=== PATIENT | male | born 1955 | race Caucasian/White ===

== ENCOUNTER 2019-04-23 06:00 | Outpatient (RCR) | payer MEDICARE, SELFPAY | END 2019-05-23 00:01 | LOC: TPO 06:00 | PROVIDERS: Family Provider Nurse Practitioner Family; Visit Provider Nurse Practitioner Family | DX: I63.9 Cerebral infarction, unspecified (principal) | CPT/HCPCS: 97110 ×2; 97530 ×2; 97535 ==

== ENCOUNTER 2019-05-24 06:00 | Outpatient (RCR) | payer MEDICARE, BC, SELFPAY | END 2019-06-23 23:59 | disposition home or self-care (01) | LOC: TPO 06:00 | PROVIDERS: Family Provider Nurse Practitioner Family; PCP Nurse Practitioner Family; Visit Provider Nurse Practitioner Family | DX: Z86.73 Personal history of transient ischemic attack (TIA), and cerebral infarction without residual deficits (principal) | CPT/HCPCS: 97110; 97116; 97164; 97530; 97535 ==

== ENCOUNTER → 2019-06-02 15:40 | Outpatient (BNVA) | payer MEDICARE, BC, SELFPAY | PROVIDERS: Family Provider Nurse Practitioner Family; PCP Nurse Practitioner Family; Visit Provider Nurse Practitioner Family | DX: N39.0 Urinary tract infection, site not specified (principal); Z12.5 Encounter for screening for malignant neoplasm of prostate; R31.9 Hematuria, unspecified | CPT/HCPCS: 81003; 84153 ==

== ENCOUNTER 2019-06-24 06:00 | Outpatient (RCR) | payer MEDICARE, BC, SELFPAY | END 2019-07-12 23:00 | disposition home or self-care (01) | LOC: TPO 06:00 | PROVIDERS: PCP Nurse Practitioner Family; Visit Provider Nurse Practitioner Family | DX: I63.9 Cerebral infarction, unspecified (principal) | CPT/HCPCS: 97110; 97168; 97530; 97535 ==

== ENCOUNTER → 2019-10-19 11:47 | Outpatient (BNVA) | payer MEDICARE, BC, SELFPAY | PROVIDERS: Visit Provider Family Medicine | DX: R53.83 Other fatigue (principal); E78.5 Hyperlipidemia, unspecified; I10 Essential (primary) hypertension; K21.0 Gastro-esophageal reflux disease with esophagitis; J44.9 Chronic obstructive pulmonary disease, unspecified; R63.4 Abnormal weight loss | CPT/HCPCS: 80053; 80061; 82607; 84443 ==

== ENCOUNTER → 2020-03-15 16:00 | Outpatient (BNVA) | payer MEDICARE, BC, SELFPAY | DX: E78.2 Mixed hyperlipidemia (principal); I10 Essential (primary) hypertension; J44.9 Chronic obstructive pulmonary disease, unspecified; K21.00 Gastro-esophageal reflux disease with esophagitis, without bleeding | CPT/HCPCS: 80053; 80061; 85025 ==

== ENCOUNTER 2020-04-09 18:47 | Emergency (ER) | payer MEDICARE, BC, SELFPAY ==
[2020-04-09 18:55] VITALS: BP 165/86; RESP 16; TEMP 36.7; O2SAT 99; BMI 18.6
[2020-04-09 19:47] VITALS: PULSE 78
--- NOTE | 2020-04-09 20:27 | XR_ITS ---
WS: [id number] RIGHT HAND: 3 VIEW(S) TECHNIQUE: PA, oblique and lateral. HISTORY: puncture wound with fence COMPARISON: 04/07/2020 No acute fracture or dislocation. Chronic deformity distal phalanx of the fifth finger. No acute frac ture. No soft tissue or bone abnormality. No foreign body. XR/XR hand RT min 3V* [id number] IMPRESSION: No foreign body or acute fracture.
[2020-04-09 20:29] LABS: Basophils % 0.4 %; Eosinophils # 0.2 10^3/uL (0.0-0.8); Hematocrit 43.5 % (42.0-52.0); Hemoglobin 14.1 g/dL (11.7-16.6); Lymphocytes # 2.6 10^3/uL (0.8-4.8); Lymphocytes % 22.7 %; Mean Corpuscular HGB Conc 32.4 g/dL (30.0-36.0); Mean Corpuscular Volume 92.6 fL (80-94); Mean Platelet Volume 11.1 fL (7.4-10.4); Monocytes # 0.9 10^3/uL (0.2-0.9); Neutrophils # 7.51 10^3/uL (1.8-7.7); Neutrophils % 66.7 %; Nucleated Red Blood Cells % 0 %; Platelet Count 240 10^3/cmm (130-400); Red Cell Distribution Width 12.9 % (12.1-15.1); White Blood Count 11.3 10^3/uL (4.0-10.0)
--- NOTE | 2020-04-09 20:33 | ED_ITS ---
HPI - Extremity Problem General: Chief complaint: Extremity Injury, Upper Stated complaint: lac rt hand Time Seen by Provider: 04/09/20 19:20 Source: patient Mode of arrival: ambulatory Limitations: no limitations History of Present Illness: HPI Narrative: 65-year-old male patient presents to the emergency department with puncture wound to the right palm. Reports large amount of bleeding, remains on Plavix and aspirin secondary to stent placement and history of CVA. He reports bleeding was difficult to control, tetanus shot greater than 10 years. He reports reached around to shut a gate when he grabbed the keila wire fence sustaining a puncture wound. Complaint: other (bleeding) Onset (ago): minute(s) (45) Location: right and upper extremity Quality: other (denies pain - pressure dressing applied) Associated symptoms: Deny chest pain, fever(s) or rash Review of Systems General: Reports: 10 or more systems reviewed and unremarkable except in HPI and below Const: Denies: fever(s), chills or diaphoresis Eyes: Denies: blurry vision or eye redness ENMT: Denies: throat pain, dental pain or disequilibrium Card: Denies: chest pain, palpitations or irregular heart rhythm Resp: Denies: dyspnea, productive cough, non-productive cough or wheezing GI: Denies: abdominal pain, nausea or vomiting : Denies: dysuria Musc: Denies: back pain Skin/Breast: Reports: changes in skin color and other (bleeding); Denies: rash or pruritus Neuro: Denies: headache(s), weakness in extremities or behavioral changes Psych: Denies: anxiety or depression Alex/Lymph: Denies: easy bruising PFS ED PFSH: Medical History (Updated 04/09/20 @ 21:27 by Alyssa Mcfarland [facility]) COPD (chronic obstructive pulmonary disease) CVA (cerebral vascular accident) GERD (gastroesophageal reflux disease) History of diverticulitis Surgical History H/O wrist surgery History of carpal tunnel surgery of left wrist History of cholecystectomy Hx of colonoscopy Social History Smoking and tobacco status: current every day smoker Alcohol intake: never Marital status: Current occupational status: retired Current gender identity: Male Physical Exam Const: COMMON NORMALS: no acute distress, patient oriented x3, healthy appearing and alert GENERAL APPEARANCE: cooperative, comfortable and well hydrated HENMT: COMMON NORMALS: normocephalic, Normal external nose present and moist oral mucous membranes HEAD & SCALP: normocephalic NOSE: Normal external nose present Eye: COMMON NORMALS: Equal, round and reactive pupils present and EOMs intact bilaterally GENERAL EYE: appearance normal, both eyes and all related structures PUPIL: Yes Equal, round and reactive pupils present Neck/C-Spine: COMMON NORMALS: full ROM and no lymphadenopathy GENERAL: Yes normal visual inspection and Yes trachea midline CERVICAL SPINE: Yes cervical ROM normal Lymph: LYMPHATIC: no lymphadenopathy noted Chest: COMMONS NORMALS: normal inspection of the chest Resp: COMMON NORMALS: normal respiratory effort and clear to auscultation bilaterally AUSCULTATION: clear to auscultation bilaterally Cardio: COMMON NORMALS: regular rhythm, S1 normal heart sound present and S2 normal heart sound present RHYTHM: regular rhythm HEART SOUNDS: S1 normal heart sound present and S2 normal heart sound present GI: COMMON NORMALS: Soft to palpation and non-tender INSPECTION: Yes normal to inspection PALPATION: Yes Soft to palpation : COMMON NORMALS: Yes no CVA tenderness BLADDER/KIDNEY EXAM: Yes no CVA tenderness Back/Pelvis: COMMON NORMALS: no CVA tenderness and thoracic and lumbar spine normal to inspection Extremity: COMMON NORMALS: normal to inspection and capillary refill normal Neuro: COMMON NORMALS: patient oriented x3 and no focal motor deficits SENSORIUM/ORIENTATION: Yes alert Psych: COMMON NORMALS: mental status grossly normal, Normal thought process present and cooperative ACTIVITY/MOTOR BEHAVIOR: Yes appropriate eye contact THOUGHT PROCESS: Normal thought process present Skin: COMMON NORMALS: turgor normal GENERAL SKIN EXAM: turgor normal TRAUMA: puncture (right thenar thumb, active pulsation bleeding) WOUNDS: Yes wounds noted Course ED course: 65-year-old male patient presents to the emergency department with arterial bleed of the right thenar surface of the hand/thumb. Bleeding was controlled with direct pressure to the radial artery and to the puncture site. Pressure dressing applied after hemostasis. Patient was monitored in the emergency department for quite some time, no return of bleeding, wound was cleansed, additional pressure dressing was applied after cleansing. Patient was placed on Augmentin for prophylactic antibiotics due to arterial puncture with barbed wire. Tetanus prophylaxis administered here in the ED. Advised to return to the emergency department if he developed return of bleeding. Spouse was counseled how to control bleeding if occurs. Vital Signs: Vital signs: Vital Signs Temperature 98.1 F 04/09/20 18:55 Pulse Rate 55 L 04/09/20 22:05 Respiratory Rate 18 04/09/20 22:05 Blood Pressure 150/80 04/09/20 22:05 Pulse Oximetry 94 04/09/20 22:05 MDM - Extremity (Nontraumatic) Lab Data: Labs: Lab Results 04/09/20 04/09/20 04/09/20 Range/Units 20:20 20:20 20:20 WBC 11.3 H (4.0-10.0) 10^3/ uL RBC 4.70 (4.1-5.3) 10^6/u L Hgb 14.1 (11.7-16.6) g/dL Hct 43.5 (42.0-52.0) % MCV 92.6 (80-94) fL MCH 30.0 (28.0-34.0) pg MCHC 32.4 (30.0-36.0) g/dL RDW 12.9 (12.1-15.1) % Plt Count 240 (130-400) 10^3/c mm MPV 11.1 H (7.4-10.4) fL Neut % (Auto) 66.7 % Lymph % (Auto) 22.7 % [place] % (Auto) 8.0 % Eos % (Auto) 2.0 % Baso % (Auto) 0.4 % Neut # (Auto) 7.51 (1.8-7.7) 10^3/u L Lymph # (Auto) 2.6 (0.8-4.8) 10^3/u L [place] # (Auto) 0.9 (0.2-0.9) 10^3/u L Eos # (Auto) 0.2 (0.0-0.8) 10^3/u L Baso # (Auto) 0.0 (0.0-0.1) 10^3/u L Nucleated RBC % (a uto) 0 % Nucleated RBCs # 0.0 /100WBC PT 13.70 (12.1-14.9) SECO NDS INR 1.02 (0.8-1.2) APTT 33.9 (23.9-36.7) SECO NDS Sodium 139 (136-145) mmol/L Potassium 3.3 L (3.5-5.1) mmol/L Chloride 103 (98-107) mmol/L Carbon Dioxide 28 (22-29) mmol/L Anion Gap 11.3 (5-19) BUN 11 (8-23) mg/dL Creatinine 0.8 (0.7-1.2) mg/dL GFR Calculation 96.7 (90-130) mL/min Glucose 93 (65-115) mg/dL Calculated Osmolal ity 287 (285-295) mOsm/k g Calcium 9.0 (8.5-10.5) mg/dL Total Bilirubin 0.5 (0.15-1.2) mg/dL AST 22 (0-40) U/L ALT 21 (0-41) U/L Alkaline Phosphata se 93 (40-130) IU/L Total Protein 6.5 L (6.6-8.7) g/dL Albumin 4.2 (3.5-5.2) g/dL Globulin 2.3 (1.3-4.6) g/dL Imaging Data^: Other Xray: My impression: negative FB to the rt hand, no acute fracture present, radiology inturp pending Discharge Plan Discharge Patient Disposition: Home Clinical Impression: Arterial hemorrhage Puncture wound of hand Qualifiers: Encounter type: initial encounter Foreign body presence: without foreign body Laterality: right Qualified Code(s): S61.431A - Puncture wound without foreign body of right hand, initial encounter Condition: Stable Prescriptions: New Augmentin 875-125 mg tablet 1 tab PO Q12H Qty: 14 RF: 0 Held aspirin [Adult Low Dose Aspirin] 81 mg tablet,delayed release (DR/EC) 81 mg PO ONCE RF: 0 Hold Instructions: Resume on 04/11/20. clopidogrel 75 mg tablet See Rx Instructions .ROUTE .COMPLEX Qty: 30 RF: 3 Hold Instructions: Resume on 04/11/20. No Action albuterol sulfate [ProAir HFA] 90 mcg/actuation HFA aerosol inhaler 2 puff INHALATION QID RF: 0 atorvastatin 40 mg tablet 40 mg PO DAILY Qty: 90 RF: 3 pantoprazole 40 mg tablet,delayed release (DR/EC) 40 mg PO DAILY Qty: 90 RF: 3 Chantix Starting Month Box 0.5 mg (11)- 1 mg (42) tablets,dose pack See Rx Instructions PO PER PKG DIR Qty: 53 RF: 0 Discharge Orders: Discharge Order (Routine); Ordered 04/09/20 Ordered By: Alyssa Mcfarland Discharge Diet: Usual diet Discharge Activity: Limit activity as instructed Patient Instructions: Puncture Wound (ED) Activity Restrictions/Additional Instructions: limited use of the right hand x 24 hours return to the ED if bleeding from the site occurs If bleeding occurs, Hold pressure to the artery and to the puncture site Take Augmentin until all gone Hold Plavix and aspirin tomorrow, resume on Leave pressure dressing on x 24 hours, may loosen if becomes too tight. May wash hands with soap and water then pat dry Coding Level of Care Code ED Specialty Food Products Supervisor for Lonnie Fwd Exam Comprehensive
[2020-04-09 20:39] LABS: INR 1.02 (0.8-1.2)
[2020-04-09] MEDS: tetanus-dipt-pertussis 0.5 mL SDV IM (20:39)
[2020-04-09 20:40] LABS: Partial Thromboplastin Time 33.9 SECONDS (23.9-36.7)
[2020-04-09 20:46] LABS: Alanine Aminotransferase 21 U/L (0-41); Albumin Level 4.2 g/dL (3.5-5.2); Alkaline Phosphatase 93 IU/L (40-130); Anion Gap 11.3 (5-19); Aspartate Amino Transferase 22 U/L (0-40); Blood Urea Nitrogen 11 mg/dL (8-23); Carbon Dioxide 28 mmol/L (22-29); Chloride 103 mmol/L (98-107); Globulin 2.3 g/dL (1.3-4.6); Glomerular Filtration Rate 96.7 mL/min (90-130); Glucose 93 mg/dL (65-115); Osmolality Calculated 287 mOsm/kg (285-295); Potassium 3.3 mmol/L (3.5-5.1); Sodium 139 mmol/L (136-145); Total Bilirubin 0.5 mg/dL (0.15-1.2); Total Protein 6.5 g/dL (6.6-8.7)
[2020-04-09 22:05] VITALS: BP 150/80; PULSE 55; RESP 18; O2SAT 94
== END 2020-04-09 22:07 | disposition home or self-care (01) ==
PROVIDERS: Emergency Provider Nurse Practitioner Family
DX: S61.431A Puncture wound without foreign body of right hand, initial encounter (principal); R58 Hemorrhage, not elsewhere classified; Z79.82 Long term (current) use of aspirin; Z79.02 Long term (current) use of antithrombotics/antiplatelets; J44.9 Chronic obstructive pulmonary disease, unspecified; Z86.73 Personal history of transient ischemic attack (TIA), and cerebral infarction without residual deficits; F17.210 Nicotine dependence, cigarettes, uncomplicated; W26.8XXA Contact with other sharp object(s), not elsewhere classified, initial encounter; Z23 Encounter for immunization
CPT/HCPCS: 12345; 73130; 80053; 85025; 85610; 85730; 90471; 90715; 99283

== ENCOUNTER → 2020-08-28 15:56 | Outpatient (BNVA) | payer MEDICARE, BC, SELFPAY | PROVIDERS: Visit Provider Nurse Practitioner Family | DX: R63.4 Abnormal weight loss (principal); R53.83 Other fatigue; Z12.11 Encounter for screening for malignant neoplasm of colon; Z68.1 Body mass index [BMI] 19.9 or less, adult; F17.210 Nicotine dependence, cigarettes, uncomplicated; Z71.89 Other specified counseling | CPT/HCPCS: 80053; 82306; 82607; 84443; 85025 ==

== ENCOUNTER 2020-09-04 12:51 | Outpatient (CLI) | payer MEDICARE, BC, SELFPAY ==
[2020-09-04] MEDS: iohexol 300 mg/mL 50 mL Btl PO (13:22)
--- NOTE | 2020-09-04 13:30 | CT_ITS ---
WS: [id number] CT CHEST, ABDOMEN, AND PELVIS TECHNIQUE: Contrast-enhanced CT of the chest, abdomen, and pelvis with coronal and sagittal reformatt ed images. CLINICAL INFORMATION: R53.83 - Other fatigue COMPARISON: CT abdomen pelvis 7 14,016 DLP: 1383.[address] scans at [facility] use at least one of these dose optimization techniques: automat ed exposure control; mA and/or kV adjustment per patient size (includes targeted exams where dose is matched to clinical indication); or iterative reconstruction. CT CHEST: Mild chronic emphysematous changes. No acute pulmonary infiltrates. No focal consolidation or pleural fluid. Fibrosis in the lung apices. Slight basilar atelectasis. No focal pneumonia or pleural fluid. No mediastinal or hilar lymphadenopathy. Slightly aneurysmal aortic arch measuring 3.6 x 3.4 cm AP by transverse. 3.5 cm noncalcified nodule right upper lobe. Additional subpleural nodules in the inferi or segment right upper lobe and right middle lobe measuring 3 to 4 mm. 2 or 3 additional noncalcified 3 to 4 mm nodules in the left upper lobe and left lower lobe. CT ABDOMEN AND PELVIS: Diffuse fatty infiltration of the liver. Cholecystectomy clips. Portal vein and splenic vein are vasques nt. Normal spleen. Normal adrenal glands. Normal renal parenchymal enhancement. Normal pancreas. Aort ic calcification. Normal GE junction. No abdominal or pelvic lymphadenopathy. Mild sigmoid constipation. No evidence of high-grade small or large bowel obstruction. Mild hypertrophic changes thoracic spine. CT/CT chest abd pel w con* IMPRESSION: 1. Mild chronic emphysematous changes. No acute pulmonary infiltrates. 2. Several noncalcified subcentimeter pulmonary nodules in both lungs. Recomme nd 12 month follow-up. 3. Fibrosis both lung apices. 4. No mediastinal or hilar lymphadenopathy. 5. Slightly aneurysmal distal aortic arch measuring 3.6 x 3.4 CM. 6. Diffuse fatty infiltration liver. Prior cholecystectomy. 7. Normal caliber abdominal aorta. 8. No abdominal or pelvic lymphadenopathy. 9. No other significant findings.
[2020-09-04] MEDS: iodixanol 320 mg/mL 100mL Btl IV (13:45)
== END 2020-09-04 12:52 | disposition home or self-care (01) ==
LOC: RADWPI 12:55
PROVIDERS: PCP Family Medicine; Visit Provider Nurse Practitioner Family
DX: R53.83 Other fatigue (principal); R63.4 Abnormal weight loss; J84.10 Pulmonary fibrosis, unspecified; R91.8 Other nonspecific abnormal finding of lung field
CPT/HCPCS: 71260; 74177; Q9967

== ENCOUNTER → 2021-01-17 10:30 | Outpatient (BNVA) | payer MEDICARE, BC, SELFPAY | PROVIDERS: PCP Family Medicine; Visit Provider Nurse Practitioner Family | DX: E78.2 Mixed hyperlipidemia (principal); I10 Essential (primary) hypertension; R53.83 Other fatigue; J44.9 Chronic obstructive pulmonary disease, unspecified; I63.89 Other cerebral infarction; Z79.899 Other long term (current) drug therapy | CPT/HCPCS: 80053; 80061; 82306; 82607; 84443; 85025 ==

== ENCOUNTER → 2021-07-21 08:37 | Outpatient (BNVA) | payer MEDICARE, BC, SELFPAY | PROVIDERS: PCP Family Medicine; Visit Provider Family Medicine | DX: E78.5 Hyperlipidemia, unspecified (principal); I10 Essential (primary) hypertension; E55.9 Vitamin D deficiency, unspecified; R53.83 Other fatigue | CPT/HCPCS: 80053; 80061; 82306; 82607; 84403; 84443; 85025 ==

== ENCOUNTER → 2022-01-07 08:38 | Outpatient (BNVA) | payer MEDICARE, BC, SELFPAY | PROVIDERS: PCP Family Medicine; Visit Provider Nurse Practitioner Family | DX: E78.5 Hyperlipidemia, unspecified (principal); E78.2 Mixed hyperlipidemia; I10 Essential (primary) hypertension; R79.89 Other specified abnormal findings of blood chemistry; R53.83 Other fatigue | CPT/HCPCS: 80053; 80061; 82607; 84403; 84443; 85025 ==

== ENCOUNTER → 2022-08-03 10:32 | Outpatient (BNVA) | payer MEDICARE, BC, SELFPAY | PROVIDERS: PCP Family Medicine; Visit Provider Nurse Practitioner Family | DX: E78.5 Hyperlipidemia, unspecified (principal); R53.83 Other fatigue; I10 Essential (primary) hypertension; R79.89 Other specified abnormal findings of blood chemistry | CPT/HCPCS: 80053; 80061; 84443; 85025 ==

== ENCOUNTER 2022-08-25 16:39 | Outpatient (CLI) | payer MEDICARE, BC, SELFPAY ==
--- NOTE | 2022-08-25 17:00 | CT_ITS ---
WS: [id number] CT chest wo con [id number] HISTORY: R91.8 - Other nonspecific abnormal finding of lung field TECHNIQUE: Axial imaging performed through the thorax. Coronal and sagittal reformats are submitted. All CT scans at [facility] use at least one of these dose optimization techniques: automated exposure control; mA and/or kV adjustment per patient size (includes targeted exams where dose is mat ched to clinical indication); or iterative reconstruction. CONTRAST: None DLP: 176.20 mGy.cm COMPARISON: 09/04/2020 Lungs and central airway: Centrilobular emphysema. Moderate biapical pleural thickening and scarring with fibrosis. Very similar to the prior study. Greater fibrosis with calcification at the RIGHT apex . Previously described upper lobe pulmonary nodules are reidentified. Very minimal change in size. Th ere is no significant enlarging mass or nodule. No new mass or nodule. Pleura: Normal. No pleural effusion. Heart and pericardium: Normal size heart with no pericardial effusion. Mediastinum and nusrat: No mediastinum or hilar adenopathy. Vessels: Mild ectasia and atherosclerosis aorta. Dilatation to the aortic arch measures 3.4 cm. Very similar to the prior study. Normal size pulmonary artery. Chest wall and lower neck: Cardiac loop recorder over the LEFT chest wall. Upper abdomen: Prior cholecystectomy. Suprarenal aortic calcification. Osseous structures: No destructive process. CT/CT chest wo con [id number] IMPRESSION: 1. Stable bilateral pulmonary nodules. Nodules are subcentimeter with no incre ase in size or change since 09/04/2020. 2. Chronic emphysema with biapical pulmonary fibrosis. 3. Mild ectasia and dilatation thoracic aorta with no interval change. 4. Prior cholecystectomy.
== END 2022-08-25 16:40 | disposition home or self-care (01) ==
PROVIDERS: PCP Family Medicine; Visit Provider Nurse Practitioner Family
DX: R91.8 Other nonspecific abnormal finding of lung field (principal); J43.9 Emphysema, unspecified; J84.10 Pulmonary fibrosis, unspecified; Z90.49 Acquired absence of other specified parts of digestive tract
CPT/HCPCS: 71250

== ENCOUNTER → 2023-03-12 13:00 | Outpatient (BNVA) | payer MEDICARE, BC, SELFPAY | PROVIDERS: PCP Family Medicine; Visit Provider Nurse Practitioner Family | DX: E78.2 Mixed hyperlipidemia (principal); I63.89 Other cerebral infarction; J44.9 Chronic obstructive pulmonary disease, unspecified; I10 Essential (primary) hypertension; Z12.5 Encounter for screening for malignant neoplasm of prostate | CPT/HCPCS: 80053; 80061; 84443; 85025; G0103 ==

== ENCOUNTER → 2023-09-17 11:26 | Outpatient (BNVA) | payer MEDICARE, BC, SELFPAY | PROVIDERS: PCP Family Medicine; Visit Provider Nurse Practitioner Family | DX: J44.9 Chronic obstructive pulmonary disease, unspecified (principal); I10 Essential (primary) hypertension; E78.2 Mixed hyperlipidemia; F17.210 Nicotine dependence, cigarettes, uncomplicated; Z78.9 Other specified health status | CPT/HCPCS: 80053; 80061; 84443; 85025 ==

== ENCOUNTER 2023-10-07 11:09 | Outpatient (CLI) | payer MEDICARE, BC, SELFPAY ==
--- NOTE | 2023-10-07 11:00 | CT_ITS ---
WS: [id number] LDCT LUNG CANCER SCREENING TECHNIQUE: Noncontrast CT of the chest with coronal and sagittal reformatted images. CLINICAL INFORMATION: F17.210 - Nicotine dependence, cigarettes, uncomplicated COMPARISON: CT chest 08/25/2022 DLP: 49.99 mGy.cm DIvol: Mean CTDIvol: 0.70 (mGy) All CT scans at [facility] use at least one of these dose optimization techniques: automat ed exposure control; mA and/or kV adjustment per patient size (includes targeted exams where dose is matched to clinical indication); or iterative reconstruction. FINDINGS: Chronic emphysematous changes with stable biapical fibrosis. Calcification of the RIGHT lung apex. Ag ain seen are multiple bilateral subcentimeter pulmonary nodules unchanged compared to previous larges t measuring 3 to 4 mm. No new suspicious pulmonary parenchymal abnormalities. A few calcified granulo mas. Ectatic aortic arch and proximal descending thoracic aorta measuring 3.5 cm. Mild aortic calcificatio n. Coronary calcification. No mediastinal or hilar lymphadenopathy. No axillary lymphadenopathy. Prior cholecystectomy. Normal GE junction. Adrenal glands are normal. Mild thoracic curve. Mild thora cic kyphosis. CT/CT lung screening [id number] IMPRESSION: LUNG-RADS: 2-Benign Appearance or Behavior FOLLOW UP: 12 Month: Continue annual screening with LDCT
== END 2023-10-07 11:10 | disposition home or self-care (01) ==
LOC: RAD 11:10
PROVIDERS: PCP Nurse Practitioner Family; Visit Provider Nurse Practitioner Family
DX: F17.210 Nicotine dependence, cigarettes, uncomplicated (principal); Z12.2 Encounter for screening for malignant neoplasm of respiratory organs
CPT/HCPCS: 71271

== ENCOUNTER → 2024-04-27 09:33 | Outpatient (BNVA) | payer MEDICARE, BC, SELFPAY | PROVIDERS: PCP Nurse Practitioner Family; Visit Provider Nurse Practitioner Family | DX: I10 Essential (primary) hypertension (principal); E78.2 Mixed hyperlipidemia; Z12.5 Encounter for screening for malignant neoplasm of prostate; J44.9 Chronic obstructive pulmonary disease, unspecified; K52.9 Noninfective gastroenteritis and colitis, unspecified | CPT/HCPCS: 80053; 80061; 84443; 85025; G0103 ==

== ENCOUNTER → 2024-10-04 13:34 | Outpatient (BNVA) | payer MEDICARE, BC, SELFPAY | PROVIDERS: PCP Nurse Practitioner Family; Visit Provider Nurse Practitioner Family | DX: I10 Essential (primary) hypertension (principal) | CPT/HCPCS: 80053; 80061; 84443; 85025 ==

== ENCOUNTER 2024-10-13 10:08 | Outpatient (CLI) | payer MEDICARE, BC, SELFPAY ==
--- NOTE | 2024-10-13 10:00 | CT_ITS ---
WS: [id number] LDCT LUNG CANCER SCREENING TECHNIQUE: Noncontrast CT of the chest with coronal and sagittal reformatted images. CLINICAL INFORMATION: F17.210 - Nicotine dependence, cigarettes, uncomplicated COMPARISON: 2023 DLP: 42.62 mGy.cm DIvol: Mean CTDIvol: 0.70 (mGy) All CT scans at [facility] use at least one of these dose optimization techniques: automated exposure control; mA and/or kV adjustment per patient size (includes targeted exams where dose is matched to clinical indication); or iterative reconstruction. FINDINGS: Chronic emphysematous changes. Fibrosis in the lung apices. Stable multiple bilateral subcentimeter pulmonary nodules similar to previous. No new suspicious pulmonary parenchymal abnormalities. A few calcified granulomas. Largest nodules measure 3 to 4 mm. Aortic and coronary calcification. Stable ectatic aortic arch and proximal descending thoracic aorta measuring 3.5 cm. Prior cholecystectomy. No mediastinal or hilar lymphadenopathy. No axillary lymphadenopathy. Prior cholecystectomy. Normal GE junction. Adrenal glands are normal. Thoracic kyphosis CT/CT lung screening [id number] IMPRESSION: LUNG-RADS: 2-Benign Appearance or Behavior FOLLOW UP: 12 Month: Continue annual screening with LDCT
== END 2024-10-13 10:09 | disposition home or self-care (01) ==
LOC: RAD 10:11
PROVIDERS: PCP Nurse Practitioner Family; Visit Provider Nurse Practitioner Family
DX: Z12.2 Encounter for screening for malignant neoplasm of respiratory organs (principal); F17.210 Nicotine dependence, cigarettes, uncomplicated; J43.8 Other emphysema; J84.10 Pulmonary fibrosis, unspecified; R91.8 Other nonspecific abnormal finding of lung field; I70.0 Atherosclerosis of aorta; I25.10 Atherosclerotic heart disease of native coronary artery without angina pectoris; I77.810 Thoracic aortic ectasia; Z90.49 Acquired absence of other specified parts of digestive tract; M40.294 Other kyphosis, thoracic region
CPT/HCPCS: 71271

== ENCOUNTER 2025-03-26 15:55 | Emergency (ER) | payer MEDICARE, BC, SELFPAY ==
[2025-03-26 15:59] VITALS: BP 158/83; PULSE 56; TEMP 36.6; O2SAT 98
--- OUTSIDE RECORDS SUMMARY | 2025-03-26 16:03 | XMS_ITS | Encounter Summary ---
Author Organization [facility] Address [address] [place] [address] Care Team Providers Care Bulb Inspector Name Role Phone Mary Colon MD Primary Care Provider [phone] Reason for Visit * Reason Onset Date Comments Question 10/13/2023 Procedure schedu ling Encounter Details Date Type Department Care Team (Late st Contact Info) Description 10/13/2023 Telephone [facility] [address] [place] [address] Aparna Subramanian, SAKINA NO ADDRESS ON FILE Question (Procedure scheduling) Social History Tobacco Use Types Packs/Day Years Used Date Smoking Tobacco: Every Day Cigarettes Smokeless Tobacco: Never Comments:Quit smokin pac k/day 6.17.20. currently smokes 0.5 ppd 12.11.19 Alcohol Use Standard Drinks/Week Comments Not Currently 0 (1 standard drink = 0.6 oz pur e alcohol) Feeling Safe Answer Date Recorded Within the last year, have y ou been afraid of your partner or ex-partner? No 02/22/2019 Within the last year, have y ou been humiliated or emotionally abused in other ways by your partner or ex-partner? No Within the last year, have y ou been kicked, hit, slapped, or otherwise physically hurt by your partner or ex-partner? No 02/22/2019 Within the last year, have y ou been raped or forced to have any kind of sexual activity by your partner or ex-partner? No 02/22/2019 Social Connections Answer Date Recorded In a typical week, how many times do you talk on the phone with family, friends, or neighbors? Once a week 02/22/2019 How often do you get togethe r with friends or relatives? Never 02/22/2019 How often do you attend chur ch or zoroastrianism services? More than 4 times per year 02/22/2019 Do you belong to any clubs o r organizations such as evangelical groups, unions, fraternal or athletic groups, or school groups? No 02/22/2019 How often do you attend meet ings of the clubs or organizations you belong to? Never 02/22/2019 Are you , , di vorced, , never , or living with a partner? 02/22/2019 Financial Resource Strain Answer Date R ecorded How hard is it for you to pa y for the very basics like food, housing, medical care, and heating? Hard 02/22/2019 Food Insecurity Answer Date Recorded Within the past 12 months, y ou worried that your food would run out before you got the money to buy more. Never true 02/23/20 19 Within the past 12 months, t he food you bought just didn't last and you didn't have money to get more. Never true 02/22/2019 Transportation Needs Answer Date Record ed In the past 12 months, has l ack of transportation kept you from medical appointments or from getting medications? Yes 06/2018 In the past 12 months, has l ack of transportation kept you from meetings, work, or from getting things needed for daily living? 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 He is still expecting a call. [facility] Cigarette Making Machine Operator: TRAVIS Collins documented in this encounter Plan of Treatment Upcoming Encounters Date Type Department Care Team (Late st Contact Info) Description 05/07/2025 1:40 PM TECHNICAL MANAGER [employer]ANT Office Visit [facility] Neurosurgery [address] [place] [address] Marc Florence MD [address] [place] [address] 09/19/2025 11:00 AM CDT Office Visit [facility] [address] [place] [address] Amber Kinney MD [address] [place] [address] Joana Lopez PA-C [address] [place] [address] documented as of this encounter Visit Diagnoses Not on filedocumented in this encounter Care Teams Bulb Inspector Relationship Specialty Start Date End Date Mary Colon MD [address] [place] [address] PCP - General Family Practice 03/15/20 documented as of this encounter
--- OUTSIDE RECORDS SUMMARY | 2025-03-26 16:03 | XMS_ITS | Encounter Summary ---
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 Gender Identity Not on file Sexual Orientation Not on file documented as of this encounter Plan of Treatment Upcoming Encounters Date Type Department Care Team (Late st Contact Info) Description 05/07/2025 1:40 PM WAD BLANKING PRESS ADJUSTER Office Visit [facility] Neurosurgery [address] [place] [address] Marc Florence MD [address] [place] [address] 09/19/2025 11:00 AM CDT Office Visit [facility] Cardiology [facility] [address] [place] [address] Amber Kinney MD [address] [place] [address] Joana Lopez PA-C [address] [place] [address] documented as of this encounter Visit Diagnoses Not on filedocumented in this encounter Care Teams Yarn Inspector Relationship Specialty Start Date End Date Mary Colon MD [address] [id number] PCP - General Family Practice 03/15/20 documented as of this encounter
--- OUTSIDE RECORDS SUMMARY | 2025-03-26 16:03 | XMS_ITS | Clinical Summary ---
Author Organization [facility] Chan argueta [place] Address [address] [place] [address] Phone Care Team Providers Care Elevator Serviceman Name Role Phone Mary Colon MD Primary Care Provider [phone] Allergies Active Allergy Reactions Criticality Noted Date Comments Tetracycline Unknown 12/08/2010 Medications acetaminophen (TYLENOL) 325 mg tablet Take 2 Tablets (650 mg) by mouth every 4 hours as needed for Temperature (temp >101). 9 Active aspirin (ECOTRIN EC) 81 mg Tablet, Delayed Release (E.C.) Take 1 Tablet (81 mg) by mouth daily. 9 Active Additional Information Patient taking differently:81 mg OralDAILY WITH BREAKFAST, Reported on 03/16/2019 pantoprazole (PROTONIX) 40 mg Tablet, Delayed Release (E.C.) Take 40 mg by mouth daily. 0 9 Active clopidogrel (PLAVIX) 75 mg Tablet Take 1 Tablet (75 mg) by mouth daily. 30 Tablet 2 9 Active atorvastatin (LIPITOR) 80 mg tablet Take 1 Tablet (80 mg) by mouth daily. 30 Tablet 11 0 Active nitroglycerin (NITROSTAT) 0.4 mg Tablet, Sublingual Place 1 Tablet (0.4 mg) under tongue every 5 minutes as needed for Chest Pain (Not to exceed 3 doses, notify physician if chest pain not relieved, hold if systolic BP less than or equal to 90 mmHg). 25 Tablet 2 0 Active Cholecalciferol , Vitamin D3, 50 mcg (2,000 unit) Capsule Take by mouth. A ctive Active Problems Problem Noted Date Diagnosed Date Implantable loop recorder - Medtronic 11/05/2020 Coronary artery disease invo lving [place] coronary artery of [place] heart without angina pectoris 03/22/2020 Abnormal computed tomography angiography of hear t 03/15/2020 Overview (03/15/2020): Added automatically from request for surgery [id number] PFO (patent foramen ovale) 07/10/2019 Carotid stenosis, asymptomatic, left 04/15/2019 History of CVA (cerebrovascular accident) 2018 Non-traumatic intracranial hemorrhage 02/23/2019 Overview (02/23/2019): Mild hemorrhagic conversion of RMCA ischemia Sinus bradycardia 02/20/2019 Cigarette nicotine dependence without complicati on Resolved Problems Problem Noted Date Diagnosed Date Resolved Date Tobacco abuse 07/10/2019 03/22/2020 ICAO (internal carotid arter y occlusion), right 02/21/2019 02/21/2019 Acute right MCA stroke 02/20/201903/22 Hypovolemic shock 02/20/2019 03/22/2020 Cardiogenic shock 03/22/2020 Immunizations Immunization Administration Dates Next Due Influenza Seasonal Unspecified Formulation IM Social History Tobacco Use Types Packs/Day Years Used Date Smoking Tobacco: Every Day Cigarettes 0.5 50 Smokeless Tobacco: Never Chew Comments:1 pack/day 6.17.20. currently smokes 0.5 ppd 12.11.19 Alcohol [...] often do you attend chur ch or shinto services? 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 Gender Identity Not on file Sexual Orientation Not on file Last Filed Vital Signs Vital Sign Reading Time Taken Comments Blood Pressure 128/78 11/13/2020 11:40 AM CDT Pulse 47 11/13/2020 11:40 AM CDT Temperature 36.1 C (96.9 F) 03/21/2020 7:10 PM CDT Respiratory Rate 16 03/22/2020 6:23 AM CDT Oxygen Saturation 99% 11/13/2020 11:40 AM CDT Inhaled Oxygen Concentration - - Weight 56.1 kg (123 lb 9.6 oz) 11/13/2020 11:40 AM CDT Height 177.8 cm (5' 10 ) 11/13/2020 11:40 AM CDT Body Mass Index 17.73 11/13/2020 11:40 AM CDT Plan of Treatment Health Maintenance Due Date Last Done Comments DTAP/TDAP/TD VACCINES (1 - Tdap) 1973 PNEUMOCOCCAL VACCINE 50+ YEARS (1 of 2 - PCV) 02/08/19 73 COLORECTAL SCREENING 1999 Colorectal Cancer Screening 1999 FIT-DNA Q 3 years 1999 FIT/FOBT Q 1 year 1999 Flex Sig/CT Colonography Q 5 years 1999 RSV VACCINE (60+ or ) (1 - Risk 50-74 years 1-dose series) 02/09/2004 ZOSTER VACCINE (1 of 2) 02/09/2004 INFLUENZA VACCINE (#1) 2024 03/10/2019 Medical Devices Implanted Type Area Call Circuit Worker Device Identifier Shelf Expiration Date Model / Serial / Lot Dental- [id number] Implanted:02/22 (Quantity not on file) Dental Description:Log [id number] - Bra [facility] Contacts+ Dental Implants - 1 - Branemark 4.3x13mm [id number] 6/7fr Mynx Closure Device-02/21/20 19 Implanted:Qty: 1 on 02/20/2019 by Marc Florence MD Other Right: Groin 10/21/2020 / / [id number] Description:6/7fr MYNX Closu re Device Other- 9 Implanted:Qty: 1 on 02/22/2019 by Amber Kinney MD Other [employer]ONIC INC 01/05/2020 / [id number] / Description:Loop Recorder Stent Carotid Xact Tpr 9-7x70 [id number]/30/ 2019 Implanted:Qty: 1 on 02/20/2019 by Marc Florence MD Stent Right: Carotid RAMÍREZ- VASC DEVICE [id number] 04/22/2021 [id number] / / [id number] Description:9-7mm x 40mm XAC T Carotid Stent Stent Vasc Enroute 8x30mm Sr-0830-Cs - [id number] Implanted:03/25 by Tramaine Wellington MD at [facility] (Quantity not on file) Stent Left: Neck SILKROAD 08/21/2020 SR-0830- CS / / [id number] Stent Synergy Mr 3.0x20mm Drug Elut [id number] - [id number] Implanted:Qty: 1 on 03/21/2020 at [facility] Stent Right: Coronary BOST[employer] SCI RENNY 10/29/2021 [id number] / / [id number] Insurance MEDICARE PART A AND B [facility] [employer] Advance Directives For more information, please contact: [phone] * Full Code (Latest Code Status on File) Date Activated Date Inactivated Comments 03/21/2020 9:09 AM 03/22/2020 12:24 PM * Full Code Date Activated Date Inactivated Comments 04/14/2019 11:07 AM 04/15/2019 2:42 PM * Full Code Date Activated Date Inactivated Comments 04/14/2019 6:44 AM 04/14/2019 11:07 AM * Full Code Date Activated Date Inactivated Comments 02/20/2019 4:51 AM 02/23/2019 4:42 PM Care Teams Elevator Serviceman Relationship Specialty Start Date End Date Mary Colon MD [address] [address] PCP - General Family Practice 03/15/20
--- OUTSIDE RECORDS SUMMARY | 2025-03-26 16:03 | XMS_ITS | Clinical Summary ---
Author Organization [facility] Chan argueta [place] Address [address] [place] [address] Phone Care Team Providers Care Oracle Sql Developer Name Role Phone Mary Colon MD Primary Care Provider [phone] Allergies Active Allergy Reactions Criticality Noted Date Comments Tetracycline Unknown 12/08/2010 Medications aspirin (ECOTRIN EC) 81 mg Tablet, Delayed Release (E.C.) Take 1 Tablet (81 mg) by mouth daily. 9 Active acetaminophen (TYLENOL) 325 mg tablet Take 2 Tablets (650 mg) by mouth every 4 hours as needed for Temperature (temp >101). 9 Active pantoprazole (PROTONIX) 40 mg Tablet, Delayed Release (E.C.) Take 40 mg by mouth daily. 0 9 Active atorvastatin (LIPITOR) 80 mg tablet [...] mcg (2,000 unit) Capsule Take by mouth. 1 Active clopidogreL (PLAVIX) 75 mg Tablet Take 75 mg by mouth. Active BENEFIBER, WHEAT DEXTRIN, ORAL Take by mouth 3 times daily. Active ProAir HFA 90 mcg/actuation inhaler INHALE TWO PUFFS BY MOUTH FOUR TIMES DAILY 2 Active Active Problems Problem Noted Date Diagnosed Date Cryptogenic stroke 09/12/2024 Chronic fatigue 09/12/2024 Encounter for loop recorder at end of battery li fe 10/14/2023 Implantable loop recorder - Medtronic 11/05/2020 Coronary artery disease invo lving [place] coronary artery of [place] heart without angina pectoris 03/22/2020 Abnormal computed tomography angiography of hear t 03/15/2020 Overview (11/26/2020): Added automatically from request for surgery [id number] Carotid stenosis, asymptomatic, left 04/15/2019 History of CVA (cerebrovascular accident) 2018 Non-traumatic intracranial hemorrhage 02/23/2019 Overview (11/26/2020): Mild hemorrhagic conversion of RMCA ischemia Sinus bradycardia 02/20/2019 Mouth, edentulous 03/17/2011 Cigarette nicotine dependence without complicati on Resolved Problems Problem Noted Date Diagnosed Date Resolved Date PFO (patent foramen ovale) 07/10/2019 0 09/12/2024 Encounters Date Type Department Care Team Description 03/05/2025 Telephone [place] [address] [facility] [address] [place] [address] Abby Avery PA Appointment Notification 02/06/2025 External Device Data STL ABSTRACTION Provider, Abstract 01/30/2025 External Device Data STL ABSTRACTION Provider, Abstract 01/09/2025 External Device Data STL ABSTRACTION Provider, Abstract 01/02/2025 External Device Data STL ABSTRACTION Provider, Abstract from Last 3 Months Immunizations Immunization Administration Dates Next Due Influenza Seasonal Unspecified Formulation IM Social History Tobacco Use Types Packs/Day Years Used Date Smoking Tobacco: Every Day Cigarettes Smokeless Tobacco: Never Tobacco Cessation:Ready to Q uit: Not Asked; Counseling Given: Not Answered Comments:Quit smokin pack/day 6.17.20. currently smokes 0.5 ppd 12.11.19 [...] 02/22/2019 How often do you attend chur or jew services? 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 Gender Identity Not on file Sexual Orientation Not on file Last Filed Vital Signs Vital Sign Reading Time Taken Comments Blood Pressure 120/72 09/12/2024 9:09 AM CDT Pulse 60 09/12/2024 9:09 AM CDT Temperature 36.3 C (97.3 F) 11/22/2023 8:32 AM CDT Respiratory Rate 16 11/22/2023 8:32 AM CDT Oxygen Saturation 98% 11/26/2023 2:06 PM CDT Inhaled Oxygen Concentration - - Weight 61.7 kg (136 lb) 09/12/2024 9:09 AM CDT Height 177.8 cm (5' 10 ) 09/12/2024 9:09 AM CDT Body Mass Index 19.51 09/12/2024 9:09 AM CDT Plan of Treatment Upcoming Encounters Date Type Department Care Team (Late st Contact Info) Description 05/07/2025 1:40 PM INBOUND CUSTOMER SERVICE AGENT Office Visit [facility] [address] [place] [address] Marc Florence MD [address] [place] [address] 09/19/2025 11:00 AM CDT Office Visit [facility] [address] [place] [address] Amber Kinney MD [address] [place] [address] Joana Lopez PA-C [address] [place] [address] Health Maintenance Due Date Last Done Comments DTAP/TDAP/TD VACCINES (1 - Tdap) 1973 PNEUMOCOCCAL VACCINE 50+ YEA RS (1 of 2 - PCV) 1973 Traditional Medicare (ACO) A nnual Wellness Visit 1973 COLORECTAL SCREENING 1999 Colorectal Cancer Screening 1999 FIT-DNA Q 3 years 1999 FIT/FOBT Q 1 year 1999 Flex Sig/CT Colonography Q 5 years 1999 RSV VACCINE (60+ or ) (1 - Risk 50-74 years 1-dose series) 02/09/2004 ZOSTER VACCINE (1 of 2) 02/09/2004 Abdominal Aortic Aneurysm (A AA) Screening 2019 INFLUENZA VACCINE (#1) 2024 , 04/10/2022, 03/10/2019 COVID-19 Vaccine (2023-2 5 season) 2025 03/09/2024, 04/01/2023, 03/17/2022, Additional history exists Medical Devices Implanted Type Area Care Attendant Device Identifier Shelf Expiration Date Model / Serial / Lot Dental-2010 Implanted: (Quantity not on file) Dental Description:Log [id number] - Bra nemark [employer] Dental Implants - 1 - Branemark 4.3x13mm [id number] Log [id number] - Branemark Jamel [employer]are Dental Implants - 1 - Branemark 4.3x13mm [id number] Implanted:Qty : 2 on 03/17/2011 at [facility] Other Bilateral: Mandible JAMEL [employer] 09/22/2015 [id number] / / [id number] 6/7fr Mynx Closure Device- [id number] Implanted:Qty : 1 on 02/20/2019 by Marc Florence MD Other Right: Groin 10/21/2020 / / [id number] Description:6/7fr MYNX Closu re Device Other-02/23/20 19 Implanted:Qty : 1 on 02/22/2019 by Amber Kinney MD Other [employer] 01/05/2020 / [id number] / Description:Loop Recorder Stent Carotid Xact Tpr 9-7x70 [id number]/30 /2019 Implanted:Qty : 1 on 02/20/2019 by Marc Florence MD Stent Right: Carotid RAMÍREZ- VASC DEVICE [id number] 04/22/2021 [id number] / / [id number] Description:9-7mm x 40mm XAC T Carotid Stent Stent Vasc Enroute 8x30mm Sr-0830-Cs - [id number] Implanted: by Tramaine Wellington MD (Quantity not on file) Stent Left: Neck SILKROAD 08/21/2020 SR-0830-C S / / [id number] Stent Synergy Mr 3.0x20mm Drug Elut [id number] - [id number] Implanted:Qty : 1 on 03/21/2020 Stent Right: Coronary [employer] RENNY 10/29/2021 [id number] Insurance MEDICARE PART A AND B [facility] * Guarantor: [id number] Account Type Relation to Patient Date of Phone Billing Address Workers Comp Employer [employer] [address] [id number] * Guarantor: [id number] Account Type Relation to Patient Date of Phone Billing Address Workers Comp Employer [employer] [address] [address] Advance Directives For more information, please contact: [phone] * Full Code (Latest Code Status on File) Date Activated Date Inactivated Comments 11/22/2023 10:47 AM 11/22/2023 2:10 PM * Full Code Date Activated Date Inactivated Comments 11/22/2023 8:19 AM 11/22/2023 10:47 AM * Full Code Date Activated Date Inactivated Comments 03/17/2011 2:27 PM 03/17/2011 10:38 PM * Full Code Date Activated Date Inactivated Comments 03/17/2011 1:43 PM 03/17/2011 2:27 PM * Full Code Date Activated Date Inactivated Comments 12/16/2010 10:18 AM 12/16/2010 7:20 PM Care Teams Oracle Sql Developer Relationship Specialty Start Date End Date Mary Colon MD [address] [address] PCP - General Family Practice 03/15/20
--- OUTSIDE RECORDS SUMMARY | 2025-03-26 16:03 | XMS_ITS | Encounter Summary ---
Author Organization [facility] Address [address] [place] [address] Care Team Providers Care Helicopter Dispatcher Name Role Phone Mary Colon MD Primary Care Provider [phone] Reason for Referral * CT Scan (Routine) - Closed Specialty Diagnoses / Procedures Referred By Contac t Referred To Contact Diagnoses PFO (patent foramen ovale) Fatigue, unspecified type Pain of left upper extremity Procedures CT CARDIAC CHEST INTERPRETATION Cary Lynn FNP Phone: tel: fax: Referral ID Status Reason Start Date Expiration Date Visits Re quested Visits Authorized [id number] Closed 03/12/2020 10/27/2020 1 1 Encounter Details Date Type Department Care Team (Late st Contact Info) Description 03/12/2020 Ancillary Orders [facility] [address] [place] [address] Cary Lynn FNP [address] [facility] [address] [place] [address] PFO (patent foramen ovale); Fatigue, unspecified type; Pain of left upper extremity Social History Tobacco Use Types Packs/Day Years [...] Never 02/22/2019 How often do you attend [facility] or restoration services? 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 No / Unsure 03/13/2020 10:30 AM CDT documented as of this encounter Plan of Treatment Not on file documented as of this encounter Results * CT CARDIAC CHEST INTERPRETATION (03/12/2020 2:05 PM CDT) Anatomical Region Laterality Modality Chest Computed Tomogra phy 03/12/2020 2:05 PM CDT Impressions 03/13/2020 9:16 AM CDT IMPRESSION: Please see below. Exam: CT CARDIAC CHEST INTERPRETATION Date/Time of Exam: 03/12/2020 2:05 PM Reason For Exam: CAD. Diagnosis: PFO (patent foramen ovale); Fatigue, unspecified type; Pain of left upper extremity. Technique: CT of the chest was performed without the administration of intravenous contrast. Cardiac portion of the exam to be interpreted by cardiology department. Findings: 7 mL Isovue-370 Extracardiac evaluation. There is a 3.5 mm noncalcified right middle lobe pulmonary micronodule on series 302 image 17. There are calcified granulomata also noted. There is a 4 mm micronodule at the anterior pleural surface of the left upper lobe on series 302 image 11. 2 mm micronodule seen posterolaterally on the same image. No pleural effusion seen. No thoracic lymphadenopathy. Visualized upper abdomen unremarkable. No significant bony disease. IMPRESSION: Extracardiac evaluation demonstrating several pulmonary micronodules. 12 month follow-up chest CT could be performed for surveillance if clinically warranted. [id number] Narrative Procedure Note Rosas Allred MD - 03/13/2020 IMPRESSION: Please see below. Exam: CT CARDIAC CHEST INTERPRETATION Date/Time of Exam: 03/12/2020 2:05 PM Reason For Exam: CAD. Diagnosis: PFO (patent foramen ovale); Fatigue, unspecified type; Pain of left upper extremity. Technique: CT of the chest was performed without the administration of intravenous contrast. Cardiac portion of the exam to be interpreted by cardiology department. Findings: 7 mL Isovue-370 Extracardiac evaluation. There is a 3.5 mm noncalcified right middle lobe pulmonary micronodule on series 302 image 17. There are calcified granulomata also noted. There is a 4 mm micronodule at the anterior pleural surface of the left upper lobe on series 302 image 11. 2 mm micronodule seen posterolaterally on the same image. No pleural effusion seen. No thoracic lymphadenopathy. Visualized upper abdomen unremarkable. No significant bony disease. IMPRESSION: Extracardiac evaluation demonstrating several pulmonary micronodules. 12 month follow-up chest CT could be performed for surveillance if clinically warranted. [id number] Cary Rose [facility] CT ORDERABLES Final Result documented in this encounter Visit Diagnoses Diagnosis PFO (patent foramen ovale) Ostium secundum type atrial septal defect Fatigue, unspecified type Pain of left upper extremity PFO (patent foramen ovale) Ostium secundum type atrial septal defect Fatigue, unspecified type Pain of left upper extremity documented in this encounter Care Teams Helicopter Dispatcher Relationship Specialty Start Date End Date Mary Colon MD [address] [address] PCP - General Family Practice 03/15/20 documented as of this encounter
--- OUTSIDE RECORDS SUMMARY | 2025-03-26 16:03 | XMS_ITS | Encounter Summary ---
Author Organization [facility] Address [address] [place] [address] Care Team Providers Care Resident Care Manager Name Role Phone Mary Colon MD Primary Care Provider [phone] Reason for Visit * Reason Onset Date Comments Appointment Notification 03/05/2025 Encounter Details Date Type Department Care Team (Late st Contact Info) Description 03/05/2025 Telephone [facility] [address] [facility] [address] [place] [address] Abby Avery PA NO ADDRESS ON FILE Appointment Notification Social History Tobacco Use Types Packs/Day Years [...] often do you attend chur ch or jew services? 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 Debbie Brown, [facility] Cardiology [facility] documented in this encounter Plan of Treatment Upcoming Encounters Date Type Department Care Team (Late st Contact Info) Description 05/07/2025 1:40 PM PARTS COUNTER SALESPERSON Office Visit [facility] Neurosurgery [address] [place] [address] Marc Florence MD [address] [place] [address] 09/19/2025 11:00 AM CDT Office Visit [facility] [address] [place] [address] Amber Kinney MD [address] [place] [address] Joana Lopez PA-C [address] [place] [address] documented as of this encounter Visit Diagnoses Not on filedocumented in this encounter Care Teams Resident Care Manager Relationship Specialty Start Date End Date Mary Colon MD [address] [place] [address] PCP - General Family Practice 03/15/20 documented as of this encounter
--- NOTE | 2025-03-26 16:43 | CTR_ITS ---
PROCEDURE INFORMATION: Exam: CT Chest Without Contrast; Diagnostic Exam date and time: 03/26/2025 4:54 PM Age: 70 years old Clinical indication: Injury or trauma; PT arrives pov C/O L side rib and hip pain post fall few days ago. PT states he slipped and fell onto his L side. Denies hitting head or loc. PT has faint bruising to L rib area. ; Additional info: Traumatic chest pain TECHNIQUE: Imaging protocol: Diagnostic computed tomography of the chest without contrast. Radiation optimization: All CT scans at this facility use at least one of these dose optimization techniques: automated exposure control; mA and/or kV adjustment per patient size (includes targeted exams where dose is matched to clinical indication); or iterative reconstruction. COMPARISON: CT lung screening [id number] 10/13/2024 10:33 AM RADIATION DOSE METRICS: Total DLP (mGy-cm): 269.11 FINDINGS: Lungs: There are emphysematous changes in the lung apices. There is biapical pleural thickening and/or subpleural parenchymal scarring consistent with remote disease. Pleural spaces: See Lungs finding. Heart: Unremarkable. No cardiomegaly. No pericardial effusion. Coronary arteries: There is moderate atherosclerotic calcification of the coronary arteries. Lymph nodes: One or more calcified pulmonary nodules, calcified hilar and/or mediastinal lymph nodes are observed consistent with old granulomatous disease. Vasculature: Unremarkable. No aortic aneurysm. Gallbladder and biliary ducts: Post cholecystectomy. Bones/joints: There is a partially displaced fracture of the posterior left 10th rib. Soft tissues: Unremarkable. CT/CT chest wo con [id number] IMPRESSION: 1. Fractured left posterolateral 10th rib. 2. Other findings as above. COMMENTS: The presence of pulmonary emphysema on CT is an independent risk factor for lung cancer. In the absence of a history or active diagnosis of lung cancer, it is recommended that this patient with emphysema be evaluated for enrollment in a low dose CT lung cancer screening program.
--- NOTE | 2025-03-26 16:43 | CTR_ITS ---
PROCEDURE INFORMATION: Exam: CT Head Without Contrast Exam date and time: 03/26/2025 4:52 PM Age: 70 years old Clinical indication: Injury or trauma; PT arrives pov C/O L side rib and hip pain post fall few days ago. PT states he slipped and fell onto his L side. Denies hitting head or loc. PT has faint bruising to L rib area. ; Additional info: Fall, anticoagulation TECHNIQUE: Imaging protocol: Computed tomography of the head without contrast. Radiation optimization: All CT scans at this facility use at least one of these dose optimization techniques: automated exposure control; mA and/or kV adjustment per patient size (includes targeted exams where dose is matched to clinical indication); or iterative reconstruction. COMPARISON: CTA Head/Neck [id number] 02/20/2019 1:35 AM RADIATION DOSE METRICS: Total DLP (mGy-cm): 1059.89 FINDINGS: Brain: Parenchymal volume loss with scattered white matter hyperintensities consistent with chronic microvascular ischemic changes. Encephalopathy within right hemisphere representing sequela of prior chronic infarct. No acute intracranial hemorrhage, mass effect or midline shift. Cerebral ventricles: No ventriculomegaly. Paranasal sinuses: Visualized sinuses are unremarkable. No fluid levels. Mastoid air cells: Visualized mastoid air cells are well aerated. Bones: Unremarkable. No acute fracture. Soft tissues: Unremarkable. CT/CT head wo con* [id number] IMPRESSION: No acute intracranial abnormality.
--- NOTE | 2025-03-26 16:43 | CTR_ITS ---
PROCEDURE INFORMATION: Exam: CT Pelvis Without Contrast, Skeleton Exam date and time: 03/26/2025 4:59 PM Age: 70 years old Clinical indication: Injury or trauma; PT arrives pov C/O L side rib and hip pain post fall few days ago. PT states he slipped and fell onto his L side. Denies hitting head or loc. PT has faint bruising to L rib area. ; Additional info: Traumatic pelvic pain TECHNIQUE: Imaging protocol: Computed tomography of the pelvis without contrast. Exam focused on the skeleton. Radiation optimization: All CT scans at this facility use at least one of these dose optimization techniques: automated exposure control; mA and/or kV adjustment per patient size (includes targeted exams where dose is matched to clinical indication); or iterative reconstruction. COMPARISON: CT chest abdpel w/*[id number] 09/04/2020 1:34 PM RADIATION DOSE METRICS: Total DLP (mGy-cm): 260.04 FINDINGS: Bones/joints: Unremarkable. No acute fracture. No dislocation. Soft tissues: Unremarkable. CT/CT pelvis [facility] [id number] IMPRESSION: No acute findings.
--- NOTE | 2025-03-26 17:29 | ED_ITS ---
HPI - Fall General: Chief Complaint: Fall Stated Complaint: Fell L side pain Time Seen by Provider: 03/26/25 17:29 History of Present Illness: 70-year-old man with a history of COPD, diverticulosis, GERD, hypertension, hyperlipidemia and history of a stroke on chronic anticoagulation with Plavix who presents to the emergency room with left hip pain and left rib pain after a fall on Wednesday, 2 days ago. He has very point tenderness in the left lower posterior rib area. No cough. No fevers. No oxygen requirements. Related Data Home Medications ?Medication ?Instructions ?Recorded ?Confirmed aspirin 81 mg tablet,delayed 81 mg PO ONCE 06/02/19 release (Adult Low Dose Aspirin) Held on 04/09/20. Instructions: Resume on 04/11/20. Previous Rx's ?Medication ?Instructions ?Recorded fluticasone propionate 50 2 spray intranasal DAILY #16 grams 08/05/22 mcg/actuation nasal spray,suspension (Flonase Allergy Relief) albuterol sulfate 90 mcg/actuation 2 puff inhalation Q ID #8.5 grams 09/17/23 aerosol inhaler (ProAir HFA) tiotropium bromide 2.5 2 puff inhalation QAM #4 gra ms 09/17/23 mcg/actuation mist for inhalation (Spiriva Respimat) fluticasone propionate 115 2 puff inhalation BID #12 g bridget 12/10/23 mcg-salmeterol 21 mcg/actuation HFA inhaler (Advair HFA) clopidogrel 75 mg tablet See Rx Instructions .Route 0 12/22/24 .COMPLEX #90 tabs pantoprazole 40 mg tablet,delayed See Rx Instructions .Route 12/22/24 release .COMPLEX #90 tabs atorvastatin 80 mg tablet See Rx Instructions .Route 1 .COMPLEX #30 tabs hydrocodone 5 mg-acetaminophen 325 1 tab PO Q6H PRN pa in #20 tabs 03/26/25 mg tablet ondansetron 4 mg disintegrating 4 mg PO Q8H PRN nausea and 03/26/25 tablet vomiting #10 tabs polyethylene glycol 3350 17 17 g PO DAILY #510 grams 1 05/26/24 gram/dose oral powder (Miralax) Allergies Allergy/AdvReac Type Severity Reaction Status Date / Time Tetracyclines Allergy Unknown Verified 03/26/25 16:06 Review of Systems Narrative: Constitutional symptoms: Negative except as documented in HPI. Skin symptoms: Negative except as documented in HPI. Eye symptoms: Negative except as documented in HPI. ENMT symptoms: Negative except as documented in HPI. Respiratory symptoms: Negative except as documented in HPI. Cardiovascular symptoms: Negative except as documented in HPI. Gastrointestinal symptoms: Negative except as documented in HPI. Genitourinary symptoms: Negative except as documented in HPI. Musculoskeletal symptoms: Negative except as documented in HPI. Neurologic symptoms: Negative except as documented in HPI. Psychiatric symptoms: Negative except as documented in HPI. Endocrine symptoms: Negative except as documented in HPI. PFS ED PFSH: Medical History (Updated 03/26/25 @ 17:33 by Claire Oseguera MD) History of diverticulitis COPD (chronic obstructive pulmonary disease) GERD (gastroesophageal reflux disease) CVA (cerebral vascular accident) Surgical History H/O wrist surgery History of cholecystectomy History of carpal tunnel surgery of left wrist Hx of colonoscopy Social History Smoking and tobacco/nicotine status: current every day tobacco/nicotine user (1PPD) Second hand smoke exposure: No Alcohol intake: never Substance/Drug Use: never Caregiver/support person: Yes (spouse) Lives independently: Yes Household members: spouse Marital status: service: No Current occupational status: retired Do you think of yourself as: Straight/Heterosexual Current gender identity: Male Special jessica needs: No Agree to transfusion: Yes Physical Exam Narrative: EXAM NARRATIVE: General: Alert, no acute distress. Skin: Warm, dry. Head: Normocephalic, atraumatic. Neck: Supple, trachea midline. Eye: Extraocular movements are intact. Ears, nose, mouth and throat: mucosa moist. Cardiovascular: Regular, Normal peripheral perfusion. Respiratory: Lungs are clear to auscultation, respirations are non-labored, breath sounds are equal, Symmetrical chest wall expansion. Very tender in the left lower posterior rib area Gastrointestinal: Soft, Nontender, Non distended Musculoskeletal: Normal ROM, no deformity. No shortening or rotation. Neurological: Alert and oriented, No focal neurological deficit observed. Psychiatric: Cooperative, appropriate mood & affect. Course Vital Signs: Vital signs: Vital Signs Temperature 97.8 F 03/26/25 15:59 Pulse Rate 56 L 03/26/25 15:59 Blood Pressure 158/83 03/26/25 15:59 Pulse Oximetry 98 03/26/25 15:59 Oxygen Delivery Me thod Room Air 03/26/25 15:59 MDM - Fall Medical Decision Making Medical decision making: Patient's reason for coming to the emergency room: Fall, rib and hip pain Social determinants: Retired, elderly. Patient does list a in the demographics. I reviewed the patient's medical record. 70-year-old man with a history of COPD, diverticulosis, GERD, hypertension, hyperlipidemia and history of a stroke on chronic anticoagulation with Plavix I reviewed the patient's current home meds Patient is on Plavix Alternate historians: None Differential diagnosis: including but not limited to and based on the above HPI, review of systems and physical exam: Traumatic posterior rib injury, hip pain without any obvious deformity and anticoagulation. Chest x-ray would be very low yield for rib fractures so I went straight to a CT and since is doing a CT of this I went ahead and did a CT of the pelvis again an x-ray would be low yield to see more occult fractures which would be what I would expect in this patient with no obvious deformities. Orders placed to evaluate differential diagnosis based on the above differential, HPI and physical exam CT head: No acute intracranial process. No intracranial hemorrhage, no evidence of infarct. No evidence of acute fracture. This was reviewed and interpreted by myself the emergency room physician. I also reviewed the radiology report. CT of the pelvis: No acute fractures. This was reviewed and interpreted by myself the emergency room physician. I also reviewed the radiology report. CT of the chest: Left posterior 10th rib fracture. This correlates with exam. This was reviewed and interpreted by myself the emergency room physician. I also reviewed the radiology report. Lab Review: Laboratory results were reviewed and interpreted by myself the emergency room physician. No lab work indicated today Assessment of risk: Level of risk: Moderate risk. Patient is very elderly and is on Plavix. Hospitalization considerations: Patient not requiring any oxygen at this time and has a single rib fracture this 2 days old so likely he can go home. Assessment and plan: Rib fracture ?[place] in the emergency room. Incentive spirometry. - Discharged home - Discussed plan with patient. Answered any questions. - Evaluation and treatment of this problem were appropriate in the emergency setting. Lab Data Radiology Impressions Chest CT 03/26/25 16:43 IMPRESSION: 1. Fractured left posterolateral 10th rib. 2. Other findings as above. COMMENTS: The presence of pulmonary emphysema on CT is an independent risk factor for lung cancer. In the absence of a history or active diagnosis of lung cancer, it is recommended that this patient with emphysema be evaluated for enrollment in a low dose CT lung cancer screening program. Head CT 03/26/25 16:43 IMPRESSION: No acute intracranial abnormality. Pelvis CT 03/26/25 16:43 IMPRESSION: No acute findings. All radiology interpretation(s) finalized by discharge Discharge Plan Discharge Patient Disposition: Home Clinical Impression: Rib fracture, Hip injury Condition: Stable Prescriptions: New hydrocodone-acetaminophen 5-325 mg tablet 1 tab PO Q6H PRN (Reason: pain) Qty: 20 0RF polyethylene glycol 3350 [Miralax] 17 gram/dose powder 17 g PO DAILY Qty: 510 0RF Rx Instructions: Take 1 scoop daily while taking pain medications. ondansetron 4 mg tablet,disintegrating 4 mg PO Q8H PRN (Reason: nausea and vomiting) Qty: 10 0RF No Action aspirin [Adult Low Dose Aspirin] 81 mg tablet,delayed release (DR/EC) 81 mg PO ONCE fluticasone propionate [Flonase Allergy Relief] 50 mcg/actuation spray,suspension 2 spray intranasal DAILY Qty: 16 5RF Rx Instructions: administer into each nostril Spiriva Respimat 2.5 mcg/actuation mist 2 puff inhalation QAM Qty: 4 5RF albuterol sulfate [ProAir HFA] 90 mcg/actuation HFA aerosol inhaler 2 puff INHALATION QID Qty: 8.5 5RF fluticasone propion-salmeterol [Advair HFA] 115-21 mcg/actuation HFA aerosol inhaler 2 puff inhalation BID Qty: 12 2RF clopidogrel 75 mg tablet See Rx Instructions .ROUTE .COMPLEX Qty: 90 0RF Dose Instruction: TAKE 1 TABLET BY MOUTH EVERY DAY Rx Instructions: TAKE 1 TABLET BY MOUTH EVERY DAY pantoprazole 40 mg tablet,delayed release (DR/EC) See Rx Instructions .ROUTE .COMPLEX Qty: 90 0RF Dose Instruction: TAKE ONE TABLET BY MOUTH DAILY Rx Instructions: TAKE ONE TABLET BY MOUTH DAILY atorvastatin 80 mg tablet See Rx Instructions .ROUTE .COMPLEX Qty: 30 0RF Dose Instruction: TAKE ONE TABLET BY MOUTH DAILY Rx Instructions: TAKE ONE TABLET BY MOUTH DAILY Discharge Orders: Discharge ED (Routine); Ordered 03/26/25 Ordered By: Claire Oseguera Referrals: Suzanne Vergara FNP [Primary Care Provider, Family Practice] Discharge Diet: Usual diet Discharge Activity: Increase activity as tolerated Patient Instructions: How to Use an Incentive Spirometer (ED), Rib Fracture (ED), Opioid Safety, Pain Management, Patient Portal & Josh Instructions Activity Restrictions/Additional Instructions: Please use incentive spirometer as instructed. At least 2-3 times per day. Also if you develop fever, worsening cough, shortness of breath please seek emergent medical attention. Thank you for choosing [facility] for your healthcare needs today. You have been screened and evaluated and felt safe for discharge. Health conditions do change or evolve sometimes and as such it is important that you follow up with your Primary Doctor to be re checked, 3-5 days is a general good time frame for follow up. You are always welcome to return to the ED for re assessment if your symptoms are worsening or you have new concerns Print Language: Bulgarian Coding Level of Care Code ED Milieu Counselor for Lonnie Moore
[2025-03-26] MEDS: HYDROcodone-acetaminophen 5-325 mg Tablet 1 TAB PO (17:41)
[2025-03-26 17:48] VITALS: BP 174/85; PULSE 59; RESP 16; O2SAT 96
== END 2025-03-26 17:44 | disposition home or self-care (01) ==
PROVIDERS: Emergency Provider Emergency Medicine; PCP Nurse Practitioner Family
DX: S22.32XA Fracture of one rib, left side, initial encounter for closed fracture (principal); S79.912A Unspecified injury of left hip, initial encounter; Z79.82 Long term (current) use of aspirin; Z79.02 Long term (current) use of antithrombotics/antiplatelets; F17.210 Nicotine dependence, cigarettes, uncomplicated; J44.9 Chronic obstructive pulmonary disease, unspecified; Z86.73 Personal history of transient ischemic attack (TIA), and cerebral infarction without residual deficits; E78.5 Hyperlipidemia, unspecified; I10 Essential (primary) hypertension; W19.XXXA Unspecified fall, initial encounter
CPT/HCPCS: 70450; 71250; 72192; 99284; J9999

== ENCOUNTER → 2025-03-29 12:57 | Outpatient (BNVA) | payer MEDICARE, BC, SELFPAY | PROVIDERS: PCP Nurse Practitioner Family; Visit Provider Nurse Practitioner Family | DX: I10 Essential (primary) hypertension (principal) | CPT/HCPCS: 80053; 80061; 84443; 85025 ==